=== PATIENT | female | born 1955 | race Caucasian/White ===

== ENCOUNTER 2021-05-11 11:58 | Outpatient (CLI) | payer MEDICARE | END 2021-05-11 11:59 | disposition home or self-care (01) | LOC: CSHMAMMO 11:58 | PROVIDERS: ATTEND Family Medicine | DX: Z12.31 Encounter for screening mammogram for malignant neoplasm of breast (principal) | CPT/HCPCS: 77063; 77067 ==

== ENCOUNTER 2022-06-11 13:33 | Outpatient (CLI) | payer MEDICARE | END 2022-06-11 13:34 | disposition home or self-care (01) | LOC: CSHMAMMO 13:33 | PROVIDERS: ATTEND Family Medicine | DX: Z12.31 Encounter for screening mammogram for malignant neoplasm of breast (principal) | CPT/HCPCS: 77063; 77067 ==